=== PATIENT | male | born 1995 | race Caucasian/White ===

== ENCOUNTER 2018-02-05 04:37 | Emergency (ER) | payer BC ==
[~2018-02-05] VITALS: Ht 170.2 cm; Wt 82.1 kg
[2018-02-05 04:39] VITALS: TEMP 36.5; Ht 170.2 cm; Wt 82.1 kg
[2018-02-05] MEDS ORDERED: XYLOCAINE 1%/SOD BICARB 20 ML VIAL INFIL ONE (05:00)
--- NOTE | 2018-02-05 05:03 | EMERGENCY ROOM VISIT NOTE ---
History Report prepared by Yoan: Tiffany Zayas Under the Supervision of: Dr. Anamika Chilel D.O. First contact with patient: 04:44 Chief Complaint: LACERATION/CUT (SUT/DERMABOND) Stated Complaint: BLEEDING History of Present Illness The patient is a 22 year old male who presents to the Emergency Room with complaints of a laceration on his left leg that occurred about an hour ago. The patient states he used a pocket knife to cut himself. He notes he has been drinking alcohol. He denies any other drug use. When asked why he cut himself, he replied "my girlfriend and I were arguing". He states he has cut himself before but not this bad. The patient notes he did not intend for his cut to be this bad. He states he has never been admitted for inpatient psychiatric care. The patient notes he sees a therapist but does not see a psychiatrist and is not on medications. He has a history of slight high blood pressure but denies a history of diabetes. The patient is a student who lives in [place]. Source of History: patient Onset: about an hour ago Position: leg (left) Review of Systems See HPI for pertinent positives & negatives. A total of 10 systems reviewed and were otherwise negative. Past Medical & Surgical Bleeding, high blood pressure. Family History Cancer Hypertension Social History Smoking Status: Current Some Day Smoker Marital Status: single Housing Status: lives with family Occupation Status: employed Current/Historical Medications No Active Prescriptions or Reported Meds Allergies Coded Allergies: Amoxicillin (Verified Allergy, Severe, facial swelling, 02/05/18) Physical Exam Vital Signs Date Time Temp Pulse Resp B/P (MAP) Pulse Ox O2 Delivery O2 Flow Rate FiO2 02/05/18 06:55 90 20 132/67 96 02/05/18 04:39 36.5 122 20 142/83 92 Room Air Physical Exam HEENT: Head - normocephalic and atraumatic Pupils are equal, round, and reactive to light. Extraocular eye muscles are intact, and sclera are anicteric. Nose - moist nasal mucosa without discharge. Mouth - moist buccal mucosa. Oropharynx is nonerythematous and there is no tonsillar exudate or edema noted. Neck: Supple; no JVD, nuchal rigidity, cervical lymphadenopathy. Heart: Regular rate and rhythm. There is a normal S1 and S2 with no murmurs, clicks, or gallops appreciated. Lungs: Clear to auscultation bilaterally with no wheezes, rales, or rhonchi. Abdomen: Soft, completely nontender, nondistended, with good bowel sounds. There are no palpable pulsatile masses or hepatosplenomegaly. There is no guarding, rigidity, or rebound noted. Extremities: No evidence of cyanosis, clubbing, or edema. There are easily palpable peripheral pulses. Left thigh 3 linear lacerations, bottom laceration 8cm, then 7cm, then 6cm. On right anterior thigh old well healed lacerations. Skin: warm and dry with good turgor and no rashes. Psych: Patient is intoxicated, admits to going too far with his cutting during an argument with his girlfriend. Medical Decision & Procedures Laboratory Results 02/05/18 05:04 02/05/18 05:04 Test 02/05/18 05:04 02/05/18 06:00 Red Blood Count 4.74 M/uL (4.7-6.1) Mean Corpuscular Volume 89.0 fL (80-100) Mean Corpuscular Hemoglobin 33.5 pg (25-34) Mean Corpuscular Hemoglobin Concent 37.7 g/dl (32-36) RDW Standard Deviation 38.1 fL (36.4-46.3) RDW Coefficient of Variation 11.7 % (11.5-14.5) Mean Platelet Volume 9.5 fL (7.4-10.4) Anion Gap 9.0 mmol/L (3-11) Est Creatinine Clear Calc Drug Dose 127.2 ml/min Estimated GFR () 133.0 Estimated GFR (Non- 114.8 BUN/Creatinine Ratio 12.6 (10-20) Calcium Level 8.5 mg/dl (8.5-10.1) Total Bilirubin 0.5 mg/dl (0.2-1) Direct Bilirubin 0.1 mg/dl (0-0.2) Aspartate Amino Transf (AST/SGOT) 78 U/L (15-37) Alanine Aminotransferase (ALT/SGPT) 118 U/L (12-78) Alkaline Phosphatase 59 U/L (45-117) Total Protein 7.9 gm/dl (6.4-8.2) Albumin 4.2 gm/dl (3.4-5.0) Thyroid Stimulating Hormone (TSH) 5.180 uIu/ml (0.300-4.500) Salicylates Level < 1.7 mg/dl (2.8-20) Acetaminophen Level < 2 ug/ml (10-30) Ethyl Alcohol mg/dL 155.0 mg/dl (0-3) Urine Color YELLOW Urine Appearance CLEAR (CLEAR) Urine pH 6.5 (4.5-7.5) Urine Specific [place] 1.019 (1.000-1.030) Urine Protein NEG (NEG) Urine Glucose (UA) NEG (NEG) Urine Ketones NEG (NEG) Urine Occult Blood NEG (NEG) Urine Nitrite NEG (NEG) Urine Bilirubin NEG (NEG) Urine Urobilinogen NEG (NEG) Urine Leukocyte Esterase NEG (NEG) Urine Opiates Screen NEG (NEG) Urine Methadone, Qualitative NEG (NEG) Urine Barbiturates NEG (NEG) Urine Phencyclidine (PCP) Level NEG (NEG) Ur Amphetamine/Methamphetamine NEG (NEG) MDMA (Ecstasy) Screen NEG (NEG) Urine Benzodiazepines Screen NEG (NEG) Urine Cocaine Metabolite NEG (NEG) Urine Marijuana (THC) NEG (NEG) Laboratory results per my review. Procedure 0500: Lidocaine HCl 20 ml INFIL ED Course 0444: Past medical records reviewed. The patient was evaluated in room A2. A complete history and physical exam was performed. Labs were drawn as above. 0500: Lidocaine HCl 20 ml INFIL. 0540: See Donna Donnelly's procedure note about laceration. 0610: I spoke with the patient and he is willing to admit himself to psychiatric care. The patient will be medically cleared around 7:30 AM. 0630: The case was signed out to Dr. Knox change of shift awaiting sobriety. Medical Decision The patient is a 22 year old male who presents to the ED with lacerations on left thigh. Differential diagnosis includes self mutilating suicide attempt, alcohol intoxication, mood disorder. Lab results show: Normal white count Normal H & H TSH 5.1 Normal renal function Normal glucose Total bilirubin normal Direct bilirubin normal AST elevated at 78 ALT elevated to 118 Salicylates and Tylenol levels are negative Alcohol 155 This is a 22-year-old male patient who used a pocket night to reflect deep lacerations to the left anterior thigh. The patient was intoxicated at the time and arguing with his girlfriend. I spent some time talking to the patient and the girlfriend about the situation. He has never been formally evaluated by a psychiatrist. He is not on medications. I spoke with the patient about inpatient psychiatric care. I believe that this is warranted at this time. He is willing to admit himself voluntarily for that care. He will be sober at 7:30 AM and can be formally evaluated by staff from [facility] Medication Reconcilliation Current Medication List: was personally reviewed by me Impression Primary Impression: Self mutilating behavior Additional Impression: Alcohol intoxication Scribe Attestation The scribe's documentation has been prepared under my direction and personally reviewed by me in its entirety. I confirm that the note above accurately reflects all work, treatment, procedures, and medical decision making performed by me. Departure Information Prescriptions No Active Prescriptions or Reported Meds Referrals No Doctor, Assigned (PCP) Patient Instructions My [facility] Problem Qualifiers Additional Impression: Alcohol intoxication Complication of substance-induced condition: uncomplicated Qualified Codes: F10.920 - Alcohol use, unspecified with intoxication, uncomplicated
[2018-02-05 05:14] LABS: HEMATOCRIT 42.2 % (42-52); HEMOGLOBIN 15.9 g/dL (14.0-18.0); MEAN CORPUSCULAR HEMOGLOBIN 33.5 pg (25-34); MEAN CORPUSCULAR HGB CONC 37.7 g/dl (32-36); MEAN PLATELET VOLUME 9.5 fL (7.4-10.4); PLATELET COUNT 227 K/uL (130-400); RED CELL DISTRIBUTION WIDTH CV 11.7 % (11.5-14.5); RED CELL DISTRIBUTION WIDTH SD 38.1 fL (36.4-46.3); WHITE BLOOD COUNT 5.35 K/uL (4.8-10.8)
[2018-02-05 05:33] LABS: ALBUMIN 4.2 gm/dl (3.4-5.0); CALCIUM 8.5 mg/dl (8.5-10.1); CREATININE 0.95 mg/dl (0.60-1.40); POTASSIUM 3.4 mmol/L (3.5-5.1)
[2018-02-05 05:44] LABS: TOTAL PROTEIN 7.9 gm/dl (6.4-8.2)
--- NOTE | 2018-02-05 06:31 | EMERGENCY ROOM VISIT NOTE ---
ED Visit Note I was asked by Dr. Chilel to perform laceration repair of this patient. Exam reveals 3 lacerations to the left anterior thigh. The most inferior laceration measures 8 cm, the middle laceration measures 7 cm and the most superior laceration measures 6 cm. There is additionally a small very superficial laceration superior to these which measures approximately 5 cm and will not require repair. Please see Dr. Chilel's note for further physical exam findings as well as HPI and ED course. Verbal consent was obtained to perform the procedure. Using sterile technique the wounds were cleansed with Betadine. The areas were sterilely draped. A total of 16 ml of 1% buffered lidocaine was used to anesthetize the lacerations. Once the patient was anesthetized, the wounds were copiously irrigated under pressure with sterile saline. The wounds were explored and were as described above. The inferior laceration was repaired using 10 running 4-0 nylon sutures with the wound edges being well approximated. The middle laceration was repaired using 9 running 4-0 nylon sutures with the wound edges being well approximated. The superior laceration was repaired using 9 simple interrupted 4-0 nylon sutures with the wound edges being well approximated. The patient tolerated the procedure well. Hemostasis was achieved. The areas were cleaned with sterile saline and dressed with bacitracin ointment and bandages.
[2018-02-05 09:49] VITALS: BP 128/76; PULSE 92; O2SAT 96
--- NOTE | 2018-02-06 18:28 | EMERGENCY ROOM VISIT NOTE ---
ED Visit Note First contact with patient: 06:48 I received this patient in signout at the change of shift from Dr. Chilel, pending mental health evaluation. The patient was evaluated by [facility] nurse liaison, Debra. The patient was felt not to be suicidal. He had no intent for self-harm but has been cutting for several years. The patient has follow- up with a clinical psychologist in [facility] for which she is established. He was discharged to the care of his girlfriend with wound care instructions. He will return to the ER for worsening of symptoms or any concerns.
== END 2018-02-05 09:54 | disposition home or self-care (01) ==
LOC: C.EDB 04:40 → C.EDA 09:54
DX: S71.112A Laceration without foreign body, left thigh, initial encounter (principal); X78.1XXA Intentional self-harm by knife, initial encounter; Y93.89 Activity, other specified; F10.129 Alcohol abuse with intoxication, unspecified; Y90.6 Blood alcohol level of 120-199 mg/100 ml; R74.0 Nonspecific elevation of levels of transaminase and lactic acid dehydrogenase [LDH]; F17.200 Nicotine dependence, unspecified, uncomplicated; Z88.1 Allergy status to other antibiotic agents